=== PATIENT | female | born 1930 | race Caucasian/White ===

== ENCOUNTER 2017-06-12 13:20 | Observation (INO) ==
[2017-06-12 14:30] LABS: Apearance,Urine Slightly Hazy (Clear); Bacteria,Urine Many /HPF (Few); Bilirubin,Urine Negative (Negative); Blood, Urine Moderate mg/dL (Negative); Glucose,Urine (UA) Negative (Negative); Hyaline Casts,Urine 15 /LPF (0-3); Ketones,Urine Negative (Negative); Mucus,Urine Occasional /LPF (Occasional); Nitrite,Urine Positive (Negative); Protein,Urine Negative; Squamous Epithelial Cell,Urine Occasional /HPF (0-10); Urine Color Yellow (Yellow); Urine Specific Gravity 1.012 (1.001-1.035); WBC,Urine 6 /HPF (0-6)
[2017-06-12 14:34] LABS: Barbiturates Screen,Urine Negative (Negative); Benzodiazepines Screen,Urine Negative (Negative); Cannabinoid Screen,Urine Negative (Negative); Opiate Screen,Urine Negative (Negative); Phencyclidine Screen,Urine Negative (Negative)
[2017-06-12 14:44] LABS: Basophils % 0.4 % (0.0-0.8); Eosinophils # 0.1 10*3/uL (0.0-0.87); Eosinophils % 1.4 % (0.00-10.9); Hematocrit 39.5 VOL% (35.7-47.0); Hemoglobin 13.2 GM/DL (12.0-16.0); Immature Granulocytes % 0.4 %; Immature Granulocytes Absolute 0.02 #; Lymphocytes # 0.8 10*3/uL (1.4-4.0); Lymphocytes % 16.4 % (21.3-54.2); Mean Corpuscular HGB Conc 33.4 GM/DL (32-36); Mean Corpuscular Hemoglobin 29 PG (27-34); Mean Corpuscular Volume 86.6 FL (87-102); Mean Platelet Volume 10.3 FL (9.6-12.0); Monocytes # 0.8 10*3/uL (0.11-0.8); Monocytes % 14.6 % (1.7-12.7); Neutrophils # 3.4 10*3/uL (1.4-7.4); Neutrophils % 66.8 % (38.7-73.9); Platelet Count 130 T/CUMM (130-400); Red Blood Count 4.56 MC/CUMM (3.8-5.5); Red Cell Distribution Width 13.6 % (9.3-17.3); White Blood Count 5.1 T/CUMM (4-12)
[2017-06-12 14:56] LABS: INR 2.4; PT Patient Result 24.8 SECS
[2017-06-12 15:14] LABS: Alanine Aminotransferase 16 U/L (13-56); Albumin 3.4 G/DL (3.4-5.0); Alkaline Phosphatase 95 U/L (45-117); Aspartate Amino Transferase 22 U/L (0-37); Blood Urea Nitrogen 10 MG/DL (7-18); Calcium 8.2 MG/DL (8.5-10.1); Glucose 104 MG/DL (74-106); Magnesium 1.6 MG/DL (1.8-2.4); Osmolality,Calculated 262.5 MOS/KG (273-304); Potassium 4.1 MMOL/L (3.5-5.1); Sodium 132 MMOL/L (136-145); Total Protein 6.7 G/DL (6.4-8.3); Troponin I Only < 0.015 NG/ML (0.00-0.045)
[2017-06-12] MEDS ORDERED: ONDANSETRON 4 MG/2 ML VIAL IV PRN (16:25)
[2017-06-12] MEDS ORDERED: guaiFENesin/DM ER 600-30 MG TABLET PO PRN (16:25)
[2017-06-12] MEDS ORDERED: MORPHINE 2 MG/1 ML SYRINGE IV PRN (16:25)
[2017-06-12] MEDS ORDERED: ACETAMINOPHEN 325 MG TABLET PO PRN (16:25)
[2017-06-12] MEDS ORDERED: diphenhydrAMINE CAP 25 MG CAPSULE PO PRN (16:25)
[2017-06-12] MEDS ORDERED: MAGNESIUM SULF RIDER 2 GM in PREMIX 1 EACH IV PRN (16:43)
[2017-06-12] MEDS ORDERED: MAGNESIUM SULF RIDER 4 GM in PREMIX 1 EACH IV PRN (16:43)
[2017-06-12] MEDS ORDERED: PANTOPRAZOLE 40 MG TABLET PO ONE (18:45)
[2017-06-12] MEDS ORDERED: cefTRIAXone 1,000 MG VIAL ONE (18:45)
[2017-06-12] MEDS: SODIUM CHLORIDE 0.9% 1,000 ML IV SCH (18:47)
[2017-06-12] MEDS: PANTOPRAZOLE 40 MG TABLET PO SCH (18:48)
[2017-06-12] MEDS: cefTRIAXone 1,000 MG in SYRINGE 1 EACH IV SCH (18:48)
[2017-06-12] MEDS: POTASSIUM CHLORIDE 20 MEQ TABLET PO SCH (23:00)
[2017-06-12] MEDS: METOPROLOL TARTRATE 50 MG TABLET PO SCH (23:00)
[2017-06-12] MEDS: OSELTAMIVIR 75 MG CAPSULE PO SCH (23:00)
[2017-06-12] MEDS: WARFARIN 3 MG TABLET PO SCH (23:00)
[2017-06-12] MEDS: DILTIAZEM CD 120 MG CAPSULE PO SCH (23:00)
[2017-06-13] MEDS ORDERED: NALOXONE 0.4 MG/ML VIAL ONE (03:48)
[2017-06-13] MEDS ORDERED: GLUCAGON 1 MG VIAL IM PRN (03:51)
[2017-06-13] MEDS ORDERED: DEXTROSE 50% 25 GM/50 ML VIAL IV PRN (03:51)
[2017-06-13] MEDS ORDERED: NALOXONE 0.4 MG/ML VIAL IV ONE (05:00)
[2017-06-13 05:26] LABS: Basophils % 0.2 % (0.0-0.8); Eosinophils % 0.9 % (0.00-10.9); Hematocrit 40.3 VOL% (35.7-47.0); Hemoglobin 13.7 GM/DL (12.0-16.0); Immature Granulocytes % 0.5 %; Immature Granulocytes Absolute 0.02 #; Lymphocytes # 1.4 10*3/uL (1.4-4.0); Lymphocytes % 32.2 % (21.3-54.2); Mean Corpuscular Hemoglobin 29 PG (27-34); Mean Corpuscular Volume 84.7 FL (87-102); Mean Platelet Volume 10.8 FL (9.6-12.0); Monocytes # 0.5 10*3/uL (0.11-0.8); Monocytes % 10.2 % (1.7-12.7); Neutrophils # 2.5 10*3/uL (1.4-7.4); Platelet Count 135 T/CUMM (130-400); Red Blood Count 4.76 MC/CUMM (3.8-5.5); Red Cell Distribution Width 13.5 % (9.3-17.3); White Blood Count 4.4 T/CUMM (4-12)
[2017-06-13 06:03] LABS: Calcium 8.6 MG/DL (8.5-10.1); Magnesium 1.7 MG/DL (1.8-2.4); Osmolality,Calculated 263.5 MOS/KG (273-304); Potassium 4.1 MMOL/L (3.5-5.1)
[2017-06-13 06:34] LABS: Band Neutrophils 6 % (0-10); Eosinophils 1 % (0-10); Lymphocytes 40 % (20-55); Segmented Neutrophils 47 % (50-85); Total Cells Counted 100
[2017-06-13 06:35] LABS: Platelet Estimate Normal
[2017-06-13 08:34] LABS: Calcium 8.4 MG/DL (8.5-10.1); Osmolality,Calculated 263.5 MOS/KG (273-304); Potassium 4.1 MMOL/L (3.5-5.1)
[2017-06-13] MEDS: DOCUSATE SODIUM 100 MG CAPSULE PO PRN (09:28)
[2017-06-13] MEDS: DILTIAZEM CD 120 MG CAPSULE PO SCH (09:28)
[2017-06-13] MEDS: OSELTAMIVIR 75 MG CAPSULE PO SCH ×2 (09:28→21:24)
[2017-06-13] MEDS: cefTRIAXone 1,000 MG in SYRINGE 1 EACH IV SCH (09:28)
[2017-06-13] MEDS: POTASSIUM CHLORIDE 20 MEQ TABLET PO SCH (09:28)
[2017-06-13] MEDS: PANTOPRAZOLE 40 MG TABLET PO SCH (09:29)
[2017-06-13] MEDS: METOPROLOL TARTRATE 50 MG TABLET PO SCH ×2 (09:29→21:24)
[2017-06-13] MEDS: SODIUM CHLORIDE 0.9% 1,000 ML IV SCH ×4 (11:50→17:57)
[2017-06-13 14:51] LABS: Basophils % 0.5 % (0.0-0.8); Eosinophils % 0.9 % (0.00-10.9); Hematocrit 38.4 VOL% (35.7-47.0); Immature Granulocytes % 0.2 %; Immature Granulocytes Absolute 0.01 #; Lymphocytes # 1.5 10*3/uL (1.4-4.0); Lymphocytes % 35.2 % (21.3-54.2); Mean Corpuscular HGB Conc 33.9 GM/DL (32-36); Mean Corpuscular Hemoglobin 29 PG (27-34); Mean Corpuscular Volume 86.9 FL (87-102); Mean Platelet Volume 10.5 FL (9.6-12.0); Monocytes # 0.6 10*3/uL (0.11-0.8); Monocytes % 13.3 % (1.7-12.7); Neutrophils # 2.2 10*3/uL (1.4-7.4); Neutrophils % 49.9 % (38.7-73.9); Platelet Count 118 T/CUMM (130-400); Red Blood Count 4.42 MC/CUMM (3.8-5.5); Red Cell Distribution Width 13.5 % (9.3-17.3); White Blood Count 4.4 T/CUMM (4-12)
[2017-06-13 15:12] LABS: Band Neutrophils 1 % (0-10); Lymphocytes 36 % (20-55); Platelet Estimate Adequate; Segmented Neutrophils 45 % (50-85); Total Cells Counted 100
[2017-06-13 17:11] LABS: ABG Base Excess -0.1 MMOL/L (-2.5-2.5); ABG HCO3 24.4 MMOL/L (20-26); ABG Oxygen Saturation 98.4 % (95-100); ABG PCO2 35.7 MM HG (35-48); ABG PH 7.431 (7.35-7.45); ABG TCO2 20.7 MMOL/L (23-27)
[2017-06-13 17:35] LABS: Apearance,Urine CLEAR (Clear); Bilirubin,Urine Negative (Negative); Blood, Urine Small mg/dL (Negative); Glucose,Urine (UA) Negative (Negative); Ketones,Urine Negative (Negative); Nitrite,Urine Negative (Negative); Protein,Urine Negative; RBC,Urine 3 /HPF (0-4); Squamous Epithelial Cell,Urine Occasional /HPF (0-10); Urine Color Yellow (Yellow); Urine Specific Gravity 1.008 (1.001-1.035); WBC,Urine 1 /HPF (0-6)
[2017-06-13] MEDS: WARFARIN 3 MG TABLET PO SCH (17:46)
[2017-06-14 07:29] LABS: Basophils % 0.2 % (0.0-0.8); Eosinophils # 0.1 10*3/uL (0.0-0.87); Eosinophils % 1.8 % (0.00-10.9); Hematocrit 38.4 VOL% (35.7-47.0); Hemoglobin 12.8 GM/DL (12.0-16.0); Immature Granulocytes % 0.4 %; Immature Granulocytes Absolute 0.02 #; Lymphocytes # 1.9 10*3/uL (1.4-4.0); Lymphocytes % 43.4 % (21.3-54.2); Mean Corpuscular HGB Conc 33.3 GM/DL (32-36); Mean Corpuscular Hemoglobin 29 PG (27-34); Mean Corpuscular Volume 86.1 FL (87-102); Mean Platelet Volume 10.6 FL (9.6-12.0); Monocytes # 0.6 10*3/uL (0.11-0.8); Monocytes % 12.5 % (1.7-12.7); Neutrophils # 1.9 10*3/uL (1.4-7.4); Neutrophils % 41.7 % (38.7-73.9); Platelet Count 122 T/CUMM (130-400); Red Blood Count 4.46 MC/CUMM (3.8-5.5); Red Cell Distribution Width 13.6 % (9.3-17.3); White Blood Count 4.5 T/CUMM (4-12)
[2017-06-14 08:08] LABS: Calcium 8.5 MG/DL (8.5-10.1); Osmolality,Calculated 271.8 MOS/KG (273-304)
[2017-06-14 08:14] LABS: Band Neutrophils 2 % (0-10); Eosinophils 2 % (0-10); Hypochromasia 1+; Lymphocytes 40 % (20-55); Microcytosis Slight; Segmented Neutrophils 44 % (50-85); Total Cells Counted 100
[2017-06-14 08:15] LABS: Platelet Estimate Adequate
[2017-06-14] MEDS: cefTRIAXone 1,000 MG in SYRINGE 1 EACH IV SCH (09:05)
[2017-06-14] MEDS: DOCUSATE SODIUM 100 MG CAPSULE PO PRN (09:06)
[2017-06-14] MEDS: METOPROLOL TARTRATE 50 MG TABLET PO SCH ×2 (09:06→21:29)
[2017-06-14] MEDS: PANTOPRAZOLE 40 MG TABLET PO SCH (09:06)
[2017-06-14] MEDS: POTASSIUM CHLORIDE 20 MEQ TABLET PO SCH (09:06)
[2017-06-14] MEDS: OSELTAMIVIR 75 MG CAPSULE PO SCH ×2 (09:06→21:29)
[2017-06-14] MEDS: DILTIAZEM CD 120 MG CAPSULE PO SCH (09:06)
[2017-06-14] MEDS: SODIUM CHLORIDE 0.9% 1,000 ML IV SCH ×3 (10:16→16:08)
[2017-06-14] MEDS ORDERED: MAGNESIUM SULF RIDER 2 GM in PREMIX 1 EACH IV ONE (11:00)
[2017-06-14] MEDS: WARFARIN 3 MG TABLET PO SCH (17:00)
[2017-06-15] MEDS: SODIUM CHLORIDE 0.9% 1,000 ML IV SCH ×2 (09:37→10:57)
[2017-06-15] MEDS: DILTIAZEM CD 120 MG CAPSULE PO SCH (09:41)
[2017-06-15] MEDS: METOPROLOL TARTRATE 50 MG TABLET PO SCH (09:41)
[2017-06-15] MEDS: PANTOPRAZOLE 40 MG TABLET PO SCH (09:41)
[2017-06-15] MEDS: OSELTAMIVIR 75 MG CAPSULE PO SCH (09:41)
[2017-06-15] MEDS: cefTRIAXone 1,000 MG in SYRINGE 1 EACH IV SCH (09:41)
[2017-06-15] MEDS: POTASSIUM CHLORIDE 20 MEQ TABLET PO SCH (09:41)
[2017-06-15 09:49] LABS: INR 3.5
[2017-06-15 09:51] LABS: PT Patient Result 35.4 SECS
[2017-06-15 11:49] VITALS: BP 150/70
== END 2017-06-15 12:40 | disposition home health service (06) ==
LOC: EDUNIT# → EDBD → N.ED 13:20 → N.EDINP 13:20 → N.2E 19:31
PROVIDERS: ADMIT Internal Medicine; ATTEND Internal Medicine

== ENCOUNTER 2017-09-15 11:25 | Inpatient (IN) ==
[2017-09-15 12:07] LABS: Basophils % 0.5 % (0.0-0.8); Eosinophils # 0.1 10*3/uL (0.0-0.87); Eosinophils % 1.2 % (0.00-10.9); Hematocrit 38.3 VOL% (35.7-47.0); Hemoglobin 12.7 GM/DL (12.0-16.0); Immature Granulocytes % 0.5 %; Immature Granulocytes Absolute 0.03 #; Lymphocytes # 1.2 10*3/uL (1.4-4.0); Lymphocytes % 18.5 % (21.3-54.2); Mean Corpuscular HGB Conc 33.2 GM/DL (32-36); Mean Corpuscular Hemoglobin 29 PG (27-34); Mean Corpuscular Volume 86.3 FL (87-102); Mean Platelet Volume 10.1 FL (9.6-12.0); Monocytes # 0.4 10*3/uL (0.11-0.8); Monocytes % 6.1 % (1.7-12.7); Neutrophils # 4.8 10*3/uL (1.4-7.4); Neutrophils % 73.2 % (38.7-73.9); Platelet Count 175 T/CUMM (130-400); Red Blood Count 4.44 MC/CUMM (3.8-5.5); Red Cell Distribution Width 14.6 % (9.3-17.3); White Blood Count 6.6 T/CUMM (4-12)
[2017-09-15 12:28] LABS: Albumin 3.7 G/DL (3.4-5.0); Bilirubin,Total 0.5 MG/DL (0.2-1.0); Calcium 9.2 MG/DL (8.5-10.1); INR 3.2; Osmolality,Calculated 262.7 MOS/KG (273-304); Partial Thromboplastin Time 32.6 SECS (0-40); Potassium 4.1 MMOL/L (3.5-5.1); Total Protein 7.6 G/DL (6.4-8.3)
[2017-09-15 12:30] LABS: PT Patient Result 32.8 SECS
[2017-09-15] MEDS ORDERED: ONDANSETRON 4 MG/2 ML VIAL ONE ×2 (12:49→13:43)
[2017-09-15] MEDS ORDERED: ONDANSETRON 4 MG/2 ML VIAL IV STA ×3 (12:58→14:00)
[2017-09-15] MEDS ORDERED: fentaNYL 100 MCG/2 ML VIAL ONE (13:47)
[2017-09-15] MEDS ORDERED: fentaNYL 100 MCG/2 ML VIAL IV STA ×2 (13:59→14:01)
[2017-09-15] MEDS ORDERED: oxyCODONE IR 5 MG TABLET PO PRN (14:35)
[2017-09-15] MEDS ORDERED: PHYTONADIONE 10 MG/1 ML AMP IV STA (14:35)
[2017-09-15] MEDS ORDERED: MORPHINE 2 MG/1 ML SYRINGE IV PRN ×2 (14:35→16:16)
[2017-09-15 14:41] LABS: Apearance,Urine Slightly Hazy (Clear); Bacteria,Urine Occasional /HPF (Few); Bilirubin,Urine Negative (Negative); Blood, Urine Small mg/dL (Negative); Glucose,Urine (UA) Negative (Negative); Ketones,Urine Negative (Negative); Mucus,Urine Occasional /LPF (Occasional); Nitrite,Urine Negative (Negative); Protein,Urine Negative; RBC,Urine 4 /HPF (0-4); Squamous Epithelial Cell,Urine Occasional /HPF (0-10); Urine Color Yellow (Yellow); Urine Urobilinogen < 2.0 EU/DL (0.2-1.0); WBC,Urine 5 /HPF (0-6)
[2017-09-15] MEDS ORDERED: SODIUM CHLORIDE 0.9% 1,000 ML IV PRN (16:12)
[2017-09-15] MEDS: SODIUM CHLORIDE 0.9% 1,000 ML IV SCH (17:11)
[2017-09-15] MEDS: METOPROLOL TARTRATE 50 MG TABLET PO SCH (20:38)
[2017-09-15 21:13] LABS: INR 1.5; PT Patient Result 15.3 SECS
[2017-09-16 05:06] LABS: Basophils % 0.2 % (0.0-0.8); Eosinophils # 0.1 10*3/uL (0.0-0.87); Eosinophils % 0.6 % (0.00-10.9); Hematocrit 29.6 VOL% (35.7-47.0); Hemoglobin 9.7 GM/DL (12.0-16.0); Immature Granulocytes % 0.4 %; Immature Granulocytes Absolute 0.04 #; Lymphocytes # 1.3 10*3/uL (1.4-4.0); Lymphocytes % 14.5 % (21.3-54.2); Mean Corpuscular HGB Conc 32.8 GM/DL (32-36); Mean Corpuscular Hemoglobin 29 PG (27-34); Mean Corpuscular Volume 87.6 FL (87-102); Mean Platelet Volume 12.1 FL (9.6-12.0); Monocytes % 10.2 % (1.7-12.7); Neutrophils # 6.9 10*3/uL (1.4-7.4); Neutrophils % 74.1 % (38.7-73.9); Platelet Count 101 T/CUMM (130-400); Red Blood Count 3.38 MC/CUMM (3.8-5.5); Red Cell Distribution Width 14.3 % (9.3-17.3); White Blood Count 9.3 T/CUMM (4-12)
[2017-09-16 05:12] LABS: INR 1.2; PT Patient Result 12.6 SECS
[2017-09-16 05:30] LABS: Hypochromasia 1+; Microcytosis 1+; Ovalocytes Slight; Platelet Estimate Decreased
[2017-09-16 05:36] LABS: Calcium 8.4 MG/DL (8.5-10.1); Osmolality,Calculated 267.1 MOS/KG (273-304); Potassium 4.1 MMOL/L (3.5-5.1)
[2017-09-16] MEDS: METOPROLOL TARTRATE 50 MG TABLET PO SCH ×3 (06:29→20:44)
[2017-09-16] MEDS ORDERED: LACTULOSE 20 GM/30 ML UDCUP PO PRN (07:20)
[2017-09-16] MEDS ORDERED: BISACODYL 10 MG SUPP RECTAL PRN (07:20)
[2017-09-16] MEDS ORDERED: PROMETHAZINE 25 MG/1 ML VIAL IM PRN (07:20)
[2017-09-16] MEDS ORDERED: MAGNESIUM HYDROXIDE SUSP 30 ML UDCUP PO PRN (07:20)
[2017-09-16] MEDS ORDERED: ceFAZolin 1,000 MG VIAL ONE (07:35)
[2017-09-16] MEDS: PANTOPRAZOLE 40 MG TABLET PO SCH (08:00)
[2017-09-16] MEDS: POTASSIUM CHLORIDE 20 MEQ TABLET PO SCH (08:00)
[2017-09-16] MEDS: SERTRALINE 50 MG TABLET PO SCH (08:00)
[2017-09-16] MEDS ORDERED: SEVOFLURANE 1 UNIT/15 MINUTE INH ONE (08:40)
[2017-09-16] MEDS ORDERED: fentaNYL 100 MCG/2 ML VIAL ONE (08:40)
[2017-09-16] MEDS ORDERED: ETOMIDATE 40 MG/20 ML VIAL IV ONE (08:40)
[2017-09-16] MEDS ORDERED: ONDANSETRON 4 MG/2 ML VIAL ONE ×2 (08:48→09:07)
[2017-09-16] MEDS ORDERED: ONDANSETRON 4 MG/2 ML VIAL IV PRN (08:50)
[2017-09-16] MEDS: SODIUM CHLORIDE 0.9% 1,000 ML IV SCH ×2 (10:30→15:05)
[2017-09-16] MEDS: ACETAMINOPHEN INJ 1,000 MG in PREMIX 1 EACH IV SCH (11:09)
[2017-09-16] MEDS: DILTIAZEM CD 120 MG CAPSULE PO SCH (12:04)
[2017-09-16] MEDS ORDERED: MORPHINE 4 MG/1 ML VIAL IV PRN ×2 (12:30→13:00)
[2017-09-16] MEDS: ONDANSETRON 4 MG/2 ML VIAL IV PRN (14:15)
[2017-09-16] MEDS: ACETAMINOPHEN 500 MG TABLET PO SCH ×2 (15:45→20:44)
[2017-09-16] MEDS: ceFAZolin 1,000 MG in SYRINGE 1 EACH IV SCH ×2 (15:45→23:07)
[2017-09-16] MEDS: WARFARIN 3 MG TABLET PO SCH (17:20)
[2017-09-17] MEDS ORDERED: SODIUM CHLORIDE 0.9% 500 ML IV ONE ×2 (00:30→01:14)
[2017-09-17 05:01] LABS: INR 1.2; PT Patient Result 12.1 SECS
[2017-09-17 05:14] LABS: Hematocrit 22.1 VOL% (35.7-47.0); Hemoglobin 7.5 GM/DL (12.0-16.0); Mean Corpuscular HGB Conc 33.9 GM/DL (32-36); Mean Corpuscular Hemoglobin 29 PG (27-34); White Blood Count 10.4 T/CUMM (4-12)
[2017-09-17 05:15] LABS: Basophils % 0.2 % (0.0-0.8); Eosinophils % 0.3 % (0.00-10.9); Immature Granulocytes % 1.3 %; Immature Granulocytes Absolute 0.14 #; Lymphocytes # 1.2 10*3/uL (1.4-4.0); Lymphocytes % 11.3 % (21.3-54.2); Mean Platelet Volume 10.7 FL (9.6-12.0); Monocytes # 1.2 10*3/uL (0.11-0.8); Monocytes % 11.7 % (1.7-12.7); Neutrophils # 7.8 10*3/uL (1.4-7.4); Neutrophils % 75.2 % (38.7-73.9); Platelet Count 116 T/CUMM (130-400); Red Cell Distribution Width 14.5 % (9.3-17.3)
[2017-09-17 05:33] LABS: Calcium 7.5 MG/DL (8.5-10.1); Osmolality,Calculated 272.1 MOS/KG (273-304)
[2017-09-17 06:51] LABS: Hypochromasia Slight; Polychromasia Slight
[2017-09-17] MEDS: SODIUM CHLORIDE 0.9% 1,000 ML IV SCH ×3 (06:57→22:43)
[2017-09-17] MEDS: ONDANSETRON 4 MG/2 ML VIAL IV PRN ×2 (10:41→16:36)
[2017-09-17] MEDS: DILTIAZEM CD 120 MG CAPSULE PO SCH ×3 (10:42→16:15)
[2017-09-17] MEDS: PANTOPRAZOLE 40 MG TABLET PO SCH ×2 (10:43→11:15)
[2017-09-17] MEDS: METOPROLOL TARTRATE 50 MG TABLET PO SCH ×2 (10:43→20:02)
[2017-09-17] MEDS: POTASSIUM CHLORIDE 20 MEQ TABLET PO SCH ×2 (10:43→11:15)
[2017-09-17] MEDS: ACETAMINOPHEN 500 MG TABLET PO SCH ×4 (10:44→20:11)
[2017-09-17] MEDS: SERTRALINE 50 MG TABLET PO SCH ×2 (10:45→11:15)
[2017-09-17] MEDS: ceFAZolin 1,000 MG in SYRINGE 1 EACH IV SCH (12:30)
[2017-09-17] MEDS ORDERED: ceFAZolin 1,000 MG in SYRINGE 1 EACH IV SCH ×2 (13:00→16:30)
[2017-09-17] MEDS: WARFARIN 3 MG TABLET PO SCH (19:24)
[2017-09-18 05:27] LABS: Basophils % 0.1 % (0.0-0.8); Eosinophils # 0.1 10*3/uL (0.0-0.87); Eosinophils % 1.2 % (0.00-10.9); Hemoglobin 7.3 GM/DL (12.0-16.0); Immature Granulocytes % 0.4 %; Immature Granulocytes Absolute 0.03 #; Lymphocytes # 1.2 10*3/uL (1.4-4.0); Lymphocytes % 14.3 % (21.3-54.2); Mean Corpuscular HGB Conc 33.2 GM/DL (32-36); Mean Corpuscular Hemoglobin 29 PG (27-34); Mean Corpuscular Volume 85.9 FL (87-102); Mean Platelet Volume 10.4 FL (9.6-12.0); Monocytes # 0.8 10*3/uL (0.11-0.8); Monocytes % 9.8 % (1.7-12.7); Neutrophils % 74.2 % (38.7-73.9); Platelet Count 112 T/CUMM (130-400); Red Blood Count 2.56 MC/CUMM (3.8-5.5); Red Cell Distribution Width 14.8 % (9.3-17.3)
[2017-09-18 05:53] LABS: INR 1.3; PT Patient Result 13.5 SECS
[2017-09-18 05:57] LABS: Calcium 7.7 MG/DL (8.5-10.1); Osmolality,Calculated 273.8 MOS/KG (273-304); Potassium 3.5 MMOL/L (3.5-5.1)
[2017-09-18] MEDS: DILTIAZEM CD 120 MG CAPSULE PO SCH (08:42)
[2017-09-18] MEDS: ACETAMINOPHEN 500 MG TABLET PO SCH ×3 (08:43→21:24)
[2017-09-18] MEDS: SERTRALINE 50 MG TABLET PO SCH (08:43)
[2017-09-18] MEDS: POTASSIUM CHLORIDE 20 MEQ TABLET PO SCH (08:43)
[2017-09-18] MEDS: PANTOPRAZOLE 40 MG TABLET PO SCH (08:43)
[2017-09-18] MEDS: METOPROLOL TARTRATE 50 MG TABLET PO SCH ×2 (08:52→21:24)
[2017-09-18] MEDS: SODIUM CHLORIDE 0.9% 1,000 ML IV SCH ×2 (09:50→21:25)
[2017-09-18] MEDS ORDERED: SODIUM CHLORIDE 0.9% 1,000 ML IV PRN (12:35)
[2017-09-18] MEDS: WARFARIN 3 MG TABLET PO SCH (18:04)
[2017-09-19] MEDS: ONDANSETRON 4 MG/2 ML VIAL IV PRN (05:11)
[2017-09-19 05:35] LABS: Basophils % 0.1 % (0.0-0.8); Eosinophils # 0.1 10*3/uL (0.0-0.87); Eosinophils % 1.4 % (0.00-10.9); Hematocrit 31.2 VOL% (35.7-47.0); Hemoglobin 10.4 GM/DL (12.0-16.0); Immature Granulocytes % 0.6 %; Immature Granulocytes Absolute 0.05 #; Lymphocytes # 1.1 10*3/uL (1.4-4.0); Lymphocytes % 14.2 % (21.3-54.2); Mean Corpuscular HGB Conc 33.3 GM/DL (32-36); Mean Corpuscular Hemoglobin 29 PG (27-34); Mean Corpuscular Volume 87.2 FL (87-102); Mean Platelet Volume 10.4 FL (9.6-12.0); Monocytes # 0.6 10*3/uL (0.11-0.8); Monocytes % 7.9 % (1.7-12.7); Neutrophils # 6.1 10*3/uL (1.4-7.4); Neutrophils % 75.8 % (38.7-73.9); Platelet Count 129 T/CUMM (130-400); Red Blood Count 3.58 MC/CUMM (3.8-5.5); Red Cell Distribution Width 14.4 % (9.3-17.3)
[2017-09-19 05:55] LABS: Osmolality,Calculated 271.8 MOS/KG (273-304); Potassium 3.9 MMOL/L (3.5-5.1)
[2017-09-19] MEDS: SODIUM CHLORIDE 0.9% 1,000 ML IV SCH (06:30)
[2017-09-19 07:49] LABS: INR 1.8; PT Patient Result 18.5 SECS
[2017-09-19] MEDS: POTASSIUM CHLORIDE 20 MEQ TABLET PO SCH (09:12)
[2017-09-19] MEDS: DILTIAZEM CD 120 MG CAPSULE PO SCH (09:12)
[2017-09-19] MEDS: ACETAMINOPHEN 500 MG TABLET PO SCH (09:13)
[2017-09-19] MEDS: SERTRALINE 50 MG TABLET PO SCH (09:13)
[2017-09-19] MEDS: METOPROLOL TARTRATE 50 MG TABLET PO SCH (09:13)
[2017-09-19] MEDS: PANTOPRAZOLE 40 MG TABLET PO SCH (09:13)
[2017-09-19 11:02] VITALS: BP 160/79
== END 2017-09-19 14:12 | DRG 481 ==
LOC: EDUNIT# → EDBD → N.ED 11:25 → N.EDINP 12:40 → N.3E 15:03
PROVIDERS: ADMIT Internal Medicine; ATTEND Internal Medicine

== ENCOUNTER 2021-04-15 14:42 | Inpatient (IN) ==
[2021-04-15] MEDS ORDERED: SODIUM CHLORIDE 0.9% 500 ML IV STA (15:31)
[2021-04-15 16:26] LABS: Bacteria,Urine Occasional /HPF (Few); Bilirubin,Urine Negative (Negative); Blood, Urine Small mg/dL (Negative); Glucose,Urine (UA) Negative (Negative); Ketones,Urine Negative (Negative); Mucus,Urine Occasional /LPF (Occasional); Nitrite,Urine Negative (Negative); Protein,Urine Negative; RBC,Urine 6 /HPF (0-4); Squamous Epithelial Cell,Urine Few /HPF (0-10); Urine Appearance CLOUDY (Clear); Urine Color Amber (Yellow); Urine Specific Gravity 1.019 (1.001-1.035)
[2021-04-15 16:42] LABS: Basophils # 0.1 10*3/uL (0.0-0.2); Basophils % 0.4 % (0.0-0.8); Eosinophils # 0.3 10*3/uL (0.0-0.87); Eosinophils % 2.3 % (0.00-10.9); Hematocrit 45.2 VOL% (35.7-47.0); Hemoglobin 12.6 GM/DL (12.0-16.0); Immature Granulocytes % 0.8 %; Lymphocytes # 2.1 10*3/uL (1.4-4.0); Lymphocytes % 17.4 % (21.3-54.2); Mean Corpuscular HGB Conc 27.9 GM/DL (32-36); Mean Corpuscular Volume 96.6 FL (87-102); Mean Platelet Volume 10.5 FL (9.6-12.0); NRBC # 0.03 10*3/uL; Neutrophils % 73.1 % (38.7-73.9); Platelet Count 396 T/CUMM (130-400); Red Blood Count 4.68 MC/CUMM (3.8-5.5); Red Cell Distribution Width 17.5 % (9.3-17.3); White Blood Count 12.1 T/CUMM (4-12)
[2021-04-15 16:52] LABS: INR 3.4; PT Patient Result 34.6 SECS (10.5-12.0)
[2021-04-15] MEDS ORDERED: SODIUM CHLORIDE 0.9% 1,650 ML IV ONE (17:12)
[2021-04-15 17:17] LABS: Alanine Aminotransferase 17 U/L (13-56); Albumin 2.4 G/DL (3.4-5.0); Alkaline Phosphatase 139 U/L (45-117); Aspartate Amino Transferase 35 U/L (0-37); Blood Urea Nitrogen 83 MG/DL (7-18); Calcium 9.1 MG/DL (8.5-10.1); Carbon Dioxide 24 MMOL/L (21-32); Estimated Glom Filtration Rate 12 ML/MIN; Glucose 95 MG/DL (74-106); Total Protein 7.7 G/DL (6.4-8.2)
[2021-04-15 17:28] LABS: Osmolality,Calculated 338.7 MOS/KG (273-304)
[2021-04-15 17:30] LABS: Sodium 159 MMOL/L (136-145)
[2021-04-15] MEDS ORDERED: ALBUTEROL 2.5 MG/3 ML NEB RESP TX PRN (17:45)
[2021-04-15] MEDS ORDERED: ONDANSETRON 4 MG/2 ML VIAL IV PRN (17:45)
[2021-04-15] MEDS: LACTATED RINGERS 1,000 ML IV SCH (18:24)
[2021-04-15] MEDS: PIPERACILLIN/TAZOBACTAM 3,375 MG in SODIUM CHLORIDE 0.9% 100 ML IV SCH (18:25)
[2021-04-15] MEDS ORDERED: NOREPINEPHRINE 4 MG/4 ML VIAL IV ONE (18:57)
[2021-04-15] MEDS ORDERED: NOREPINEPHRINE 8 MG in SODIUM CHLORIDE 0.9% 242 ML IV PRN (19:01)
[2021-04-16] MEDS: PIPERACILLIN/TAZOBACTAM 3,375 MG in SODIUM CHLORIDE 0.9% 100 ML IV SCH ×3 (02:21→17:26)
[2021-04-16] MEDS: LACTATED RINGERS 1,000 ML IV SCH ×2 (02:49→09:55)
[2021-04-16 05:34] LABS: Basophils % 0.4 % (0.0-0.8); Eosinophils # 0.2 10*3/uL (0.0-0.87); Eosinophils % 2.2 % (0.00-10.9); Hematocrit 39.9 VOL% (35.7-47.0); Immature Granulocytes % 0.9 %; Lymphocytes # 1.8 10*3/uL (1.4-4.0); Lymphocytes % 16.6 % (21.3-54.2); Mean Corpuscular HGB Conc 27.3 GM/DL (32-36); Mean Corpuscular Volume 98.8 FL (87-102); Mean Platelet Volume 10.5 FL (9.6-12.0); Monocytes % 4.8 % (1.7-12.7); NRBC # 0.02 10*3/uL; Neutrophils % 75.1 % (38.7-73.9); Platelet Count 342 T/CUMM (130-400); Red Blood Count 4.04 MC/CUMM (3.8-5.5); Red Cell Distribution Width 17.5 % (9.3-17.3); White Blood Count 10.6 T/CUMM (4-12)
[2021-04-16 05:39] LABS: Hemoglobin 10.9 GM/DL (12.0-16.0)
[2021-04-16 05:44] LABS: INR 3.1; PT Patient Result 32.4 SECS (10.5-12.0)
[2021-04-16 05:50] LABS: Albumin 1.9 G/DL (3.4-5.0); Bilirubin,Total 0.5 MG/DL (0.20-1.00); Calcium 8.6 MG/DL (8.5-10.1); Osmolality,Calculated 339.5 MOS/KG (273-304); Potassium 4.6 MMOL/L (3.5-5.1); Total Protein 6.8 G/DL (6.4-8.2)
[2021-04-16 05:59] LABS: Platelet Estimate Normal
[2021-04-16 06:00] LABS: Polychromasia Few
[2021-04-16] MEDS: DEXTROSE 5% 1,000 ML IV SCH ×2 (06:30→16:17)
[2021-04-16] MEDS ORDERED: LACTATED RINGERS 1,000 ML IV ONE (08:42)
[2021-04-16] MEDS: SERTRALINE 50 MG TABLET PO SCH (08:58)
[2021-04-16] MEDS: HYDROCORTISONE 100 MG VIAL IV SCH (13:11)
[2021-04-17] MEDS: HYDROCORTISONE 100 MG VIAL IV SCH (00:36)
[2021-04-17] MEDS: PIPERACILLIN/TAZOBACTAM 3,375 MG in SODIUM CHLORIDE 0.9% 100 ML IV SCH ×3 (02:12→16:55)
[2021-04-17 05:50] LABS: Basophils % 0.1 % (0.0-0.8); Eosinophils % 0.1 % (0.00-10.9); Hematocrit 32.5 VOL% (35.7-47.0); Hemoglobin 9.6 GM/DL (12.0-16.0); Immature Granulocytes % 0.7 %; Immature Granulocytes Absolute 0.06 #; Lymphocytes # 0.7 10*3/uL (1.4-4.0); Lymphocytes % 7.9 % (21.3-54.2); Mean Corpuscular HGB Conc 29.5 GM/DL (32-36); Mean Corpuscular Volume 95.3 FL (87-102); Mean Platelet Volume 10.4 FL (9.6-12.0); Monocytes % 1.2 % (1.7-12.7); NRBC # 0.02 10*3/uL; Platelet Count 262 T/CUMM (130-400); Red Blood Count 3.41 MC/CUMM (3.8-5.5); Red Cell Distribution Width 17.1 % (9.3-17.3); White Blood Count 8.8 T/CUMM (4-12)
[2021-04-17 05:52] LABS: Calcium 8.1 MG/DL (8.5-10.1); Osmolality,Calculated 321.6 MOS/KG (273-304); Potassium 3.3 MMOL/L (3.5-5.1)
[2021-04-17 06:04] LABS: Hypochromasia 1+; Microcytosis 1+; Ovalocytes Slight; Platelet Estimate Normal
[2021-04-17] MEDS: POTASSIUM CHLORIDE 20 MEQ TABLET PO ONE ×2 (10:09→10:58)
[2021-04-17] MEDS: DEXTROSE 5% 1,000 ML IV SCH (10:09)
[2021-04-17] MEDS: SERTRALINE 50 MG TABLET PO SCH ×2 (10:09→10:58)
[2021-04-17] MEDS: FLUDROCORTISONE 0.1 MG TABLET PO SCH (10:56)
[2021-04-17] MEDS ORDERED: HYDROCORTISONE 100 MG VIAL IV SCH (12:00)
[2021-04-18] MEDS: PIPERACILLIN/TAZOBACTAM 3,375 MG in SODIUM CHLORIDE 0.9% 100 ML IV SCH ×3 (01:13→18:02)
[2021-04-18 04:26] LABS: Basophils % 0.1 % (0.0-0.8); Eosinophils # 0.2 10*3/uL (0.0-0.87); Eosinophils % 1.9 % (0.00-10.9); Hematocrit 32.4 VOL% (35.7-47.0); Hemoglobin 9.6 GM/DL (12.0-16.0); Immature Granulocytes % 0.7 %; Immature Granulocytes Absolute 0.06 #; Lymphocytes # 1.6 10*3/uL (1.4-4.0); Lymphocytes % 18.8 % (21.3-54.2); Mean Corpuscular HGB Conc 29.6 GM/DL (32-36); Mean Corpuscular Volume 93.4 FL (87-102); Mean Platelet Volume 10.5 FL (9.6-12.0); Monocytes % 5.2 % (1.7-12.7); NRBC # 0.03 10*3/uL; Neutrophils % 73.3 % (38.7-73.9); Platelet Count 251 T/CUMM (130-400); Red Blood Count 3.47 MC/CUMM (3.8-5.5); Red Cell Distribution Width 16.4 % (9.3-17.3); White Blood Count 8.6 T/CUMM (4-12)
[2021-04-18 04:41] LABS: Calcium 8.2 MG/DL (8.5-10.1); Osmolality,Calculated 307.9 MOS/KG (273-304); Potassium 2.9 MMOL/L (3.5-5.1)
[2021-04-18] MEDS ORDERED: POTASSIUM CHLORIDE 20 MEQ TABLET PO ONE (07:45)
[2021-04-18] MEDS: POTASSIUM CHLORIDE RIDER 10 MEQ/100 ML PREMIX IV PRN ×4 (09:01→16:47)
[2021-04-18] MEDS: FLUDROCORTISONE 0.1 MG TABLET PO SCH (09:57)
[2021-04-18] MEDS: SERTRALINE 50 MG TABLET PO SCH (09:57)
[2021-04-18 13:23] LABS: INR 1.8
[2021-04-18 13:28] LABS: PT Patient Result 19.9 SECS (10.5-12.0)
[2021-04-19] MEDS: DEXTROSE 5% 1,000 ML IV SCH ×3 (00:18→01:35)
[2021-04-19] MEDS: PIPERACILLIN/TAZOBACTAM 3,375 MG in SODIUM CHLORIDE 0.9% 100 ML IV SCH ×2 (00:19→08:54)
[2021-04-19 06:41] LABS: Basophils % 0.3 % (0.0-0.8); Eosinophils # 0.3 10*3/uL (0.0-0.87); Hematocrit 29.2 VOL% (35.7-47.0); Hemoglobin 8.6 GM/DL (12.0-16.0); Immature Granulocytes % 0.7 %; Immature Granulocytes Absolute 0.05 #; Lymphocytes # 1.1 10*3/uL (1.4-4.0); Lymphocytes % 14.7 % (21.3-54.2); Mean Corpuscular HGB Conc 29.5 GM/DL (32-36); Mean Corpuscular Volume 91.5 FL (87-102); Mean Platelet Volume 10.4 FL (9.6-12.0); Monocytes % 5.2 % (1.7-12.7); Neutrophils % 75.1 % (38.7-73.9); Platelet Count 217 T/CUMM (130-400); Red Blood Count 3.19 MC/CUMM (3.8-5.5); Red Cell Distribution Width 16.5 % (9.3-17.3); White Blood Count 7.5 T/CUMM (4-12)
[2021-04-19 06:51] LABS: INR 1.4; PT Patient Result 15.6 SECS (10.5-12.0)
[2021-04-19 06:56] LABS: Calcium 7.9 MG/DL (8.5-10.1); Osmolality,Calculated 304.7 MOS/KG (273-304); Potassium 3.2 MMOL/L (3.5-5.1)
[2021-04-19] MEDS: SERTRALINE 50 MG TABLET PO SCH (08:54)
[2021-04-19] MEDS: FLUDROCORTISONE 0.1 MG TABLET PO SCH (08:54)
[2021-04-19] MEDS ORDERED: LEVOFLOXACIN INJ 500 MG/100 ML PREMIX IV SCH (10:00)
[2021-04-19] MEDS: carvediloL 3.125 MG TABLET PO SCH ×2 (11:00→19:47)
[2021-04-19] MEDS: POTASSIUM CHLORIDE RIDER 10 MEQ/100 ML PREMIX IV PRN (15:45)
[2021-04-19] MEDS ORDERED: SODIUM CHLORIDE 0.9% 1,000 ML IV PRN (17:27)
[2021-04-19] MEDS ORDERED: SODIUM CHLORIDE 0.9% 1,000 ML IV ONE (17:40)
[2021-04-19 17:54] LABS: Basophils % 0.2 % (0.0-0.8); Eosinophils # 0.2 10*3/uL (0.0-0.87); Eosinophils % 2.3 % (0.00-10.9); Hematocrit 25.9 VOL% (35.7-47.0); Hemoglobin 7.6 GM/DL (12.0-16.0); Immature Granulocytes % 1.3 %; Immature Granulocytes Absolute 0.12 #; Lymphocytes # 1.8 10*3/uL (1.4-4.0); Lymphocytes % 18.9 % (21.3-54.2); Mean Corpuscular HGB Conc 29.3 GM/DL (32-36); Mean Corpuscular Volume 92.8 FL (87-102); Mean Platelet Volume 10.3 FL (9.6-12.0); Monocytes % 4.3 % (1.7-12.7); NRBC # 0.02 10*3/uL; Platelet Count 224 T/CUMM (130-400); Red Blood Count 2.79 MC/CUMM (3.8-5.5); Red Cell Distribution Width 16.6 % (9.3-17.3); White Blood Count 9.3 T/CUMM (4-12)
[2021-04-19 18:19] LABS: Alanine Aminotransferase 11 U/L (13-56); Albumin 1.6 G/DL (3.4-5.0); Alkaline Phosphatase 76 U/L (45-117); Aspartate Amino Transferase 23 U/L (0-37); Blood Urea Nitrogen 21 MG/DL (7-18); Calcium 7.6 MG/DL (8.5-10.1); Carbon Dioxide 24 MMOL/L (21-32); Estimated Glom Filtration Rate 43 ML/MIN; Glucose 211 MG/DL (74-106); Osmolality,Calculated 302.3 MOS/KG (273-304); Potassium 3.8 MMOL/L (3.5-5.1); Sodium 148 MMOL/L (136-145); Total Protein 4.9 G/DL (6.4-8.2)
[2021-04-19 18:22] LABS: INR 1.6; PT Patient Result 17.8 SECS (10.5-12.0); Partial Thromboplastin Time 33.8 SECS (23.8-32.1)
[2021-04-19 19:04] LABS: Hematocrit 26.5 VOL% (35.7-47.0)
[2021-04-19] MEDS ORDERED: PANTOPRAZOLE INJ 80 MG in SODIUM CHLORIDE 0.9% 100 ML IV ONE (19:30)
[2021-04-19] MEDS ORDERED: PANTOPRAZOLE INJ 200 MG in SODIUM CHLORIDE 0.9% 250 ML IV SCH (20:30)
[2021-04-19 22:01] LABS: Basophils % 0.2 % (0.0-0.8); Eosinophils # 0.2 10*3/uL (0.0-0.87); Hematocrit 24.1 VOL% (35.7-47.0); Hemoglobin 7.1 GM/DL (12.0-16.0); Immature Granulocytes % 1.6 %; Immature Granulocytes Absolute 0.16 #; Lymphocytes # 1.4 10*3/uL (1.4-4.0); Lymphocytes % 13.9 % (21.3-54.2); Mean Corpuscular HGB Conc 29.5 GM/DL (32-36); Mean Corpuscular Volume 92.3 FL (87-102); Mean Platelet Volume 10.2 FL (9.6-12.0); Monocytes % 5.6 % (1.7-12.7); Neutrophils % 76.7 % (38.7-73.9); Platelet Count 185 T/CUMM (130-400); Red Blood Count 2.61 MC/CUMM (3.8-5.5); Red Cell Distribution Width 16.5 % (9.3-17.3)
[2021-04-20] MEDS: DEXTROSE 5% 1,000 ML IV SCH ×2 (04:01→09:32)
[2021-04-20 04:58] LABS: Basophils % 0.3 % (0.0-0.8); Eosinophils # 0.2 10*3/uL (0.0-0.87); Eosinophils % 2.5 % (0.00-10.9); Hematocrit 38.9 VOL% (35.7-47.0); Hemoglobin 12.3 GM/DL (12.0-16.0); Immature Granulocytes % 2.5 %; Lymphocytes # 1.3 10*3/uL (1.4-4.0); Lymphocytes % 16.7 % (21.3-54.2); Mean Corpuscular HGB Conc 31.6 GM/DL (32-36); Mean Corpuscular Volume 90.3 FL (87-102); Mean Platelet Volume 10.2 FL (9.6-12.0); Monocytes % 4.4 % (1.7-12.7); Neutrophils % 73.6 % (38.7-73.9); Platelet Count 164 T/CUMM (130-400); Red Blood Count 4.31 MC/CUMM (3.8-5.5); Red Cell Distribution Width 15.7 % (9.3-17.3)
[2021-04-20 05:07] LABS: INR 1.3; PT Patient Result 14.6 SECS (10.5-12.0)
[2021-04-20 05:16] LABS: Calcium 7.8 MG/DL (8.5-10.1); Osmolality,Calculated 296.1 MOS/KG (273-304); Potassium 3.4 MMOL/L (3.5-5.1)
[2021-04-20] MEDS: POTASSIUM CHLORIDE RIDER 10 MEQ/100 ML PREMIX IV PRN ×3 (06:35→13:58)
[2021-04-20 07:17] LABS: Basophils % 0.2 % (0.0-0.8); Eosinophils # 0.3 10*3/uL (0.0-0.87); Hematocrit 36.2 VOL% (35.7-47.0); Hemoglobin 11.4 GM/DL (12.0-16.0); Immature Granulocytes % 1.5 %; Immature Granulocytes Absolute 0.13 #; Lymphocytes # 1.2 10*3/uL (1.4-4.0); Lymphocytes % 14.7 % (21.3-54.2); Mean Corpuscular HGB Conc 31.5 GM/DL (32-36); Mean Corpuscular Volume 89.8 FL (87-102); Mean Platelet Volume 10.5 FL (9.6-12.0); Monocytes % 5.1 % (1.7-12.7); NRBC # 0.02 10*3/uL; Neutrophils % 75.5 % (38.7-73.9); Platelet Count 153 T/CUMM (130-400); Red Blood Count 4.03 MC/CUMM (3.8-5.5); Red Cell Distribution Width 15.7 % (9.3-17.3); White Blood Count 8.4 T/CUMM (4-12)
[2021-04-20] MEDS: carvediloL 3.125 MG TABLET PO SCH ×2 (08:00→17:20)
[2021-04-20] MEDS: FLUDROCORTISONE 0.1 MG TABLET PO SCH (09:00)
[2021-04-20] MEDS: SERTRALINE 50 MG TABLET PO SCH (09:00)
[2021-04-20] MEDS: DEXTROSE 5% NACL 0.45% 1,000 ML IV SCH (09:14)
[2021-04-20 10:39] LABS: Basophils % 0.2 % (0.0-0.8); Eosinophils # 0.3 10*3/uL (0.0-0.87); Eosinophils % 3.3 % (0.00-10.9); Hematocrit 34.7 VOL% (35.7-47.0); Hemoglobin 11.1 GM/DL (12.0-16.0); Immature Granulocytes % 1.5 %; Immature Granulocytes Absolute 0.14 #; Lymphocytes # 1.4 10*3/uL (1.4-4.0); Lymphocytes % 15.1 % (21.3-54.2); Mean Corpuscular Volume 88.3 FL (87-102); Mean Platelet Volume 10.5 FL (9.6-12.0); Monocytes % 4.7 % (1.7-12.7); NRBC # 0.02 10*3/uL; Neutrophils % 75.2 % (38.7-73.9); Platelet Count 160 T/CUMM (130-400); Red Blood Count 3.93 MC/CUMM (3.8-5.5); Red Cell Distribution Width 15.9 % (9.3-17.3); White Blood Count 9.1 T/CUMM (4-12)
[2021-04-20] MEDS: SODIUM CHLORIDE 0.9% 1,000 ML IV SCH ×3 (10:57→17:02)
[2021-04-20] MEDS ORDERED: LIDOCAINE 2% 5 ML VIAL ONE (12:15)
[2021-04-20] MEDS ORDERED: ETOMIDATE 20 MG/10 ML VIAL IV ONE (12:15)
[2021-04-20] MEDS ORDERED: propofoL 200 MG/20 ML VIAL IV ONE (12:15)
[2021-04-20 12:45] VITALS: BP 115/86
[2021-04-20] MEDS: MAGNESIUM SULF RIDER 2 GM/50 ML PREMIX IV PRN (13:03)
[2021-04-20 14:05] LABS: Basophils % 0.3 % (0.0-0.8); Eosinophils # 0.3 10*3/uL (0.0-0.87); Eosinophils % 3.2 % (0.00-10.9); Hematocrit 34.1 VOL% (35.7-47.0); Hemoglobin 10.9 GM/DL (12.0-16.0); Immature Granulocytes % 1.8 %; Immature Granulocytes Absolute 0.16 #; Lymphocytes # 1.2 10*3/uL (1.4-4.0); Lymphocytes % 12.8 % (21.3-54.2); Mean Corpuscular Volume 89.7 FL (87-102); Mean Platelet Volume 10.8 FL (9.6-12.0); Monocytes % 4.8 % (1.7-12.7); NRBC # 0.02 10*3/uL; Neutrophils % 77.1 % (38.7-73.9); Platelet Count 155 T/CUMM (130-400); Red Cell Distribution Width 16.3 % (9.3-17.3)
[2021-04-20 17:16] LABS: Bilirubin,Urine Negative (Negative); Blood, Urine Negative (Negative); Glucose,Urine (UA) Negative (Negative); Hyaline Casts,Urine 8 /LPF (0-3); Ketones,Urine Negative (Negative); Mucus,Urine Occasional /LPF (Occasional); Nitrite,Urine Negative (Negative); Protein,Urine Negative; Squamous Epithelial Cell,Urine Occasional /HPF (0-10); Urine Appearance CLEAR (Clear); Urine Color Yellow (Yellow); Urine Specific Gravity 1.013 (1.001-1.035); Urine Urobilinogen < 2.0 EU/DL (0.2-1.0)
[2021-04-20] MEDS: PANTOPRAZOLE 40 MG VIAL IV SCH (21:22)
[2021-04-21 05:23] LABS: Calcium 7.9 MG/DL (8.5-10.1); Osmolality,Calculated 282.1 MOS/KG (273-304); Potassium 3.4 MMOL/L (3.5-5.1)
[2021-04-21] MEDS: POTASSIUM CHLORIDE RIDER 10 MEQ/100 ML PREMIX IV PRN ×3 (05:36→12:18)
[2021-04-21] MEDS: DEXTROSE 5% NACL 0.45% 1,000 ML IV SCH (05:37)
[2021-04-21] MEDS ORDERED: CLINDAMYCIN INJ 900 MG/50 ML PREMIX IV ONE (06:00)
[2021-04-21 07:38] LABS: Basophils % 0.3 % (0.0-0.8); Eosinophils # 0.4 10*3/uL (0.0-0.87); Hematocrit 35.9 VOL% (35.7-47.0); Hemoglobin 11.7 GM/DL (12.0-16.0); Immature Granulocytes % 1.3 %; Immature Granulocytes Absolute 0.15 #; Lymphocytes # 1.1 10*3/uL (1.4-4.0); Lymphocytes % 9.3 % (21.3-54.2); Mean Corpuscular HGB Conc 32.6 GM/DL (32-36); Mean Corpuscular Volume 88.4 FL (87-102); Monocytes % 4.8 % (1.7-12.7); Neutrophils % 81.3 % (38.7-73.9); Platelet Count 160 T/CUMM (130-400); Red Blood Count 4.06 MC/CUMM (3.8-5.5); Red Cell Distribution Width 16.6 % (9.3-17.3); White Blood Count 11.6 T/CUMM (4-12)
[2021-04-21] MEDS: SKIN HEALING OINT (AQUAPHOR) 50 GM TUBE TOP SCH (11:30)
[2021-04-21] MEDS: PANTOPRAZOLE 40 MG VIAL IV SCH ×2 (12:15→20:14)
[2021-04-21] MEDS ORDERED: METHYLENE BLUE 10 ML VIAL IV ONE (14:07)
[2021-04-21] MEDS ORDERED: LIDOCAINE 2% 5 ML VIAL ONE (14:10)
[2021-04-21] MEDS ORDERED: ROCURONIUM 50 MG/5 ML VIAL IV ONE (14:10)
[2021-04-21] MEDS ORDERED: ETOMIDATE 40 MG/20 ML VIAL IV ONE (14:10)
[2021-04-21] MEDS ORDERED: SUCCINYLCHOLINE 200 MG/10 ML VIAL ONE (14:10)
[2021-04-21] MEDS ORDERED: fentaNYL 100 MCG/2 ML VIAL ONE (14:10)
[2021-04-21] MEDS ORDERED: SEVOFLURANE 1 UNIT/15 MINUTE INH ONE (14:11)
[2021-04-21] MEDS ORDERED: ALBUMIN 5% 12.5 GM/250 ML VIAL IV ONE (14:57)
[2021-04-21] MEDS ORDERED: PHENYLEPHRINE 10 MG/1 ML VIAL IV ONE (15:20)
[2021-04-21] MEDS ORDERED: SODIUM CHLORIDE 0.9% 100 ML IV ONE (15:20)
[2021-04-21] MEDS ORDERED: TISSUE ADHESIVE 1 EACH APPLICATOR TOP ONE (15:29)
[2021-04-21] MEDS ORDERED: NEOSTIGMINE 10 MG/10 ML VIAL ONE (15:32)
[2021-04-21] MEDS ORDERED: GLYCOPYRROLATE 0.4 MG/2 ML VIAL ONE (15:32)
[2021-04-21] MEDS: FLUDROCORTISONE 0.1 MG TABLET PO SCH (16:33)
[2021-04-21] MEDS: carvediloL 3.125 MG TABLET PO SCH ×2 (16:33→17:30)
[2021-04-21] MEDS: SERTRALINE 50 MG TABLET PO SCH (16:33)
[2021-04-21 17:39] LABS: ABG Base Excess -6.6 MMOL/L (-2.5-2.5); ABG Oxygen Saturation 98.3 % (95-100); ABG PCO2 55.7 MM HG (35-48); ABG TCO2 20.3 MMOL/L (23-27); Allen Test Positive; Pt O2 Delivery Device Ventilator
[2021-04-21 17:40] LABS: ABG PH 7.205 (7.35-7.45)
[2021-04-21] MEDS: SODIUM CHLORIDE 0.9% 1,000 ML IV SCH (18:54)
[2021-04-21] MEDS ORDERED: PHENYLEPHRINE DRIP 40 MG/250 ML PREMIX IV ONE (20:33)
[2021-04-21] MEDS ORDERED: MIDAZOLAM 100 MG in SODIUM CHLORIDE 0.9% 80 ML IV PRN (20:38)
[2021-04-21] MEDS ORDERED: LACTATED RINGERS 500 ML IV ONE (20:38)
[2021-04-21] MEDS: PHENYLEPHRINE DRIP 40 MG/250 ML PREMIX IV PRN (20:47)
[2021-04-22] MEDS: DEXTROSE 5% NACL 0.45% 1,000 ML IV SCH ×3 (02:17→22:03)
[2021-04-22 03:45] LABS: ABG Base Excess -0.5 MMOL/L (-2.5-2.5); ABG HCO3 22.1 MMOL/L (20-26); ABG Oxygen Saturation 98.4 % (95-100); ABG PCO2 29.3 MM HG (35-48); ABG PH 7.496 (7.35-7.45); ABG PO2 137.8 MM HG (80-95); Allen Test Positive; Pt O2 Delivery Device Ventilator
[2021-04-22 03:59] LABS: Basophils % 0.2 % (0.0-0.8); Eosinophils # 0.3 10*3/uL (0.0-0.87); Eosinophils % 3.3 % (0.00-10.9); Hematocrit 29.7 VOL% (35.7-47.0); Hemoglobin 9.7 GM/DL (12.0-16.0); Lymphocytes # 1.8 10*3/uL (1.4-4.0); Lymphocytes % 17.4 % (21.3-54.2); Mean Corpuscular HGB Conc 32.7 GM/DL (32-36); Mean Corpuscular Volume 89.5 FL (87-102); Mean Platelet Volume 10.9 FL (9.6-12.0); Monocytes % 6.2 % (1.7-12.7); Neutrophils % 71.9 % (38.7-73.9); Platelet Count 140 T/CUMM (130-400); Red Blood Count 3.32 MC/CUMM (3.8-5.5); Red Cell Distribution Width 16.7 % (9.3-17.3); White Blood Count 10.2 T/CUMM (4-12)
[2021-04-22 04:14] LABS: Osmolality,Calculated 279.1 MOS/KG (273-304); Potassium 2.8 MMOL/L (3.5-5.1)
[2021-04-22] MEDS: POTASSIUM CHLORIDE RIDER 10 MEQ/100 ML PREMIX IV PRN ×5 (04:30→14:00)
[2021-04-22] MEDS: carvediloL 3.125 MG TABLET PO SCH ×2 (08:57→17:48)
[2021-04-22] MEDS: FLUDROCORTISONE 0.1 MG TABLET PO SCH (09:50)
[2021-04-22] MEDS: SERTRALINE 50 MG TABLET PO SCH (09:50)
[2021-04-22] MEDS: PANTOPRAZOLE 40 MG VIAL IV SCH ×2 (09:52→21:59)
[2021-04-22] MEDS: SKIN HEALING OINT (AQUAPHOR) 50 GM TUBE TOP SCH (09:52)
[2021-04-22] MEDS: MAGNESIUM SULF RIDER 2 GM/50 ML PREMIX IV PRN (16:13)
[2021-04-22] MEDS: SODIUM CHLORIDE 0.9% 1,000 ML IV SCH (17:03)
[2021-04-23 04:04] LABS: Basophils % 0.1 % (0.0-0.8); Eosinophils # 0.4 10*3/uL (0.0-0.87); Hematocrit 32.1 VOL% (35.7-47.0); Hemoglobin 10.1 GM/DL (12.0-16.0); Immature Granulocytes % 1.1 %; Immature Granulocytes Absolute 0.13 #; Lymphocytes # 1.3 10*3/uL (1.4-4.0); Lymphocytes % 11.1 % (21.3-54.2); Mean Corpuscular HGB Conc 31.5 GM/DL (32-36); Mean Corpuscular Volume 89.4 FL (87-102); Mean Platelet Volume 11.3 FL (9.6-12.0); Monocytes % 6.5 % (1.7-12.7); Neutrophils % 78.2 % (38.7-73.9); Platelet Count 163 T/CUMM (130-400); Red Blood Count 3.59 MC/CUMM (3.8-5.5); Red Cell Distribution Width 17.2 % (9.3-17.3); White Blood Count 11.9 T/CUMM (4-12)
[2021-04-23 04:43] LABS: Calcium 7.3 MG/DL (8.5-10.1); Osmolality,Calculated 274.5 MOS/KG (273-304); Potassium 3.2 MMOL/L (3.5-5.1)
[2021-04-23] MEDS: carvediloL 3.125 MG TABLET PO SCH ×2 (08:33→18:12)
[2021-04-23] MEDS: SKIN HEALING OINT (AQUAPHOR) 50 GM TUBE TOP SCH (08:33)
[2021-04-23] MEDS: SERTRALINE 50 MG TABLET PO SCH (08:34)
[2021-04-23] MEDS: FLUDROCORTISONE 0.1 MG TABLET PO SCH (08:34)
[2021-04-23] MEDS: PANTOPRAZOLE 40 MG VIAL IV SCH ×2 (08:34→21:00)
[2021-04-23] MEDS: POTASSIUM CHLORIDE RIDER 10 MEQ/100 ML PREMIX IV PRN ×4 (08:57→12:29)
[2021-04-23 10:06] LABS: ABG Base Excess -2.8 MMOL/L (-2.5-2.5); ABG HCO3 22.1 MMOL/L (20-26); ABG Oxygen Saturation 99.1 % (95-100); ABG PCO2 35.9 MM HG (35-48); ABG TCO2 19.7 MMOL/L (23-27); Pt O2 Delivery Device Ventilator
[2021-04-23] MEDS: ALBUMIN 5% 25 GM/500 ML VIAL IV ONE ×2 (10:07→10:19)
[2021-04-23] MEDS ORDERED: ALBUMIN 5% 12.5 GM/250 ML VIAL IV ONE (10:30)
[2021-04-23] MEDS: DEXTROSE 5% NACL 0.45% 1,000 ML IV SCH ×3 (12:58→21:54)
[2021-04-23] MEDS ORDERED: LORazepam 2 MG/1 ML VIAL ONE (17:59)
[2021-04-23] MEDS: LORazepam 2 MG/1 ML VIAL IV PRN (18:05)
[2021-04-23] MEDS: SODIUM CHLORIDE 0.9% 1,000 ML IV SCH (18:12)
[2021-04-24] MEDS ORDERED: LORazepam 2 MG/1 ML VIAL ONE ×3 (00:19→20:24)
[2021-04-24] MEDS: LORazepam 2 MG/1 ML VIAL IV PRN ×3 (00:20→20:36)
[2021-04-24] MEDS: DEXTROSE 5% NACL 0.45% 1,000 ML IV SCH (04:35)
[2021-04-24] MEDS: SKIN HEALING OINT (AQUAPHOR) 50 GM TUBE TOP SCH (08:47)
[2021-04-24] MEDS: SERTRALINE 50 MG TABLET PO SCH (08:47)
[2021-04-24] MEDS: PANTOPRAZOLE 40 MG VIAL IV SCH ×2 (08:47→21:29)
[2021-04-24] MEDS: FLUDROCORTISONE 0.1 MG TABLET PO SCH (08:47)
[2021-04-24] MEDS: carvediloL 3.125 MG TABLET PO SCH ×2 (08:47→17:52)
[2021-04-24] MEDS: QUEtiapine 25 MG TABLET PO SCH (10:44)
[2021-04-24] MEDS: APIXABAN 2.5 MG TABLET PO SCH ×2 (10:44→21:29)
[2021-04-24 12:03] LABS: Calcium 7.5 MG/DL (8.5-10.1); Potassium 4.1 MMOL/L (3.5-5.1)
[2021-04-24] MEDS ORDERED: FUROSEMIDE 40 MG/4 ML VIAL IV ONE ×2 (12:26→21:22)
[2021-04-24] MEDS ORDERED: ALBUMIN 5% 12.5 GM/250 ML VIAL IV ONE (12:26)
[2021-04-24] MEDS: PHENYLEPHRINE DRIP 40 MG/250 ML PREMIX IV PRN (12:37)
[2021-04-24] MEDS: POTASSIUM CHLORIDE 20 MEQ PACK PER TUBE SCH (12:58)
[2021-04-24] MEDS: MEROPENEM 500 MG in SODIUM CHLORIDE 0.9% 100 ML IV SCH (18:15)
[2021-04-24] MEDS ORDERED: ALBUTEROL/IPRATROPIUM 3 ML NEB RESP TX ONE (21:01)
[2021-04-24 21:28] LABS: ABG Base Excess -0.5 MMOL/L (-2.5-2.5); ABG HCO3 23.9 MMOL/L (20-26); ABG Oxygen Saturation 89.9 % (95-100); ABG PCO2 52.8 MM HG (35-48); ABG PH 7.307 (7.35-7.45); ABG PO2 61.6 MM HG (80-95); ABG TCO2 24.3 MMOL/L (23-27)
[2021-04-24 21:55] LABS: Basophils % 0.1 % (0.0-0.8); Eosinophils # 0.2 10*3/uL (0.0-0.87); Hematocrit 30.8 VOL% (35.7-47.0); Hemoglobin 9.5 GM/DL (12.0-16.0); Immature Granulocytes % 0.7 %; Immature Granulocytes Absolute 0.11 #; Lymphocytes # 0.9 10*3/uL (1.4-4.0); Lymphocytes % 5.4 % (21.3-54.2); Mean Corpuscular HGB Conc 30.8 GM/DL (32-36); Mean Corpuscular Volume 91.4 FL (87-102); Mean Platelet Volume 11.6 FL (9.6-12.0); Monocytes % 4.4 % (1.7-12.7); Neutrophils % 88.4 % (38.7-73.9); Platelet Count 116 T/CUMM (130-400); Red Blood Count 3.37 MC/CUMM (3.8-5.5); Red Cell Distribution Width 17.2 % (9.3-17.3); White Blood Count 15.7 T/CUMM (4-12)
[2021-04-24 22:46] LABS: ABG Base Excess -0.2 MMOL/L (-2.5-2.5); ABG HCO3 24.3 MMOL/L (20-26); ABG Oxygen Saturation 98.2 % (95-100); ABG PCO2 57.1 MM HG (35-48); ABG PH 7.289 (7.35-7.45); ABG TCO2 25.2 MMOL/L (23-27)
[2021-04-25] MEDS: ALBUTEROL/IPRATROPIUM 3 ML NEB RESP TX SCH ×4 (00:17→19:16)
[2021-04-25] MEDS: MEROPENEM 500 MG in SODIUM CHLORIDE 0.9% 100 ML IV SCH ×4 (00:24→17:43)
[2021-04-25] MEDS: PHENYLEPHRINE DRIP 40 MG/250 ML PREMIX IV PRN ×4 (03:31→19:11)
[2021-04-25] MEDS: VANCOMYCIN INJ 1,000 MG in SODIUM CHLORIDE 0.9% 250 ML IV SCH (03:31)
[2021-04-25 04:26] LABS: ABG Base Excess 2.5 MMOL/L (-2.5-2.5); ABG HCO3 26.6 MMOL/L (20-26); ABG Oxygen Saturation 97.6 % (95-100); ABG PCO2 46.2 MM HG (35-48); ABG PO2 90.8 MM HG (80-95); ABG TCO2 25.3 MMOL/L (23-27)
[2021-04-25 06:35] LABS: Basophils % 0.2 % (0.0-0.8); Eosinophils # 0.2 10*3/uL (0.0-0.87); Hemoglobin 10.1 GM/DL (12.0-16.0); Immature Granulocytes % 0.9 %; Immature Granulocytes Absolute 0.14 #; Lymphocytes # 0.7 10*3/uL (1.4-4.0); Lymphocytes % 4.8 % (21.3-54.2); Mean Corpuscular HGB Conc 31.6 GM/DL (32-36); Mean Corpuscular Volume 90.4 FL (87-102); Mean Platelet Volume 10.7 FL (9.6-12.0); Monocytes % 3.5 % (1.7-12.7); Neutrophils % 89.6 % (38.7-73.9); Platelet Count 120 T/CUMM (130-400); Red Blood Count 3.54 MC/CUMM (3.8-5.5); Red Cell Distribution Width 17.2 % (9.3-17.3); White Blood Count 15.3 T/CUMM (4-12)
[2021-04-25 07:05] LABS: Calcium 7.7 MG/DL (8.5-10.1); Osmolality,Calculated 278.3 MOS/KG (273-304)
[2021-04-25 07:06] LABS: Band Neutrophils 7 % (0-10); Hypochromasia 2+; Lymphocytes 3 % (20-55); Metamyelocytes 1 %; Platelet Estimate Adequate; Polychromasia Slight; Segmented Neutrophils 82 % (50-85); Total Cells Counted 100
[2021-04-25] MEDS: QUEtiapine 25 MG TABLET PO SCH (08:37)
[2021-04-25] MEDS: APIXABAN 2.5 MG TABLET PO SCH ×2 (08:38→21:22)
[2021-04-25] MEDS: FLUDROCORTISONE 0.1 MG TABLET PO SCH (08:38)
[2021-04-25] MEDS: POTASSIUM CHLORIDE 20 MEQ TABLET PO PRN ×4 (08:38→16:21)
[2021-04-25] MEDS: SERTRALINE 50 MG TABLET PO SCH (08:38)
[2021-04-25] MEDS: SKIN HEALING OINT (AQUAPHOR) 50 GM TUBE TOP SCH (08:39)
[2021-04-25] MEDS: carvediloL 3.125 MG TABLET PO SCH ×3 (08:39→17:32)
[2021-04-25] MEDS: MAGNESIUM SULF RIDER 2 GM/50 ML PREMIX IV PRN (09:04)
[2021-04-25] MEDS: POTASSIUM CHLORIDE 20 MEQ PACK PER TUBE SCH (09:04)
[2021-04-25] MEDS: FUROSEMIDE 40 MG/4 ML VIAL IV SCH ×2 (09:10→16:31)
[2021-04-25] MEDS: PANTOPRAZOLE 40 MG VIAL IV SCH ×2 (09:14→21:18)
[2021-04-25 12:43] LABS: Albumin 1.9 G/DL (3.4-5.0); Bilirubin,Direct 0.42 MG/DL (0.0-0.20); Bilirubin,Indirect 0.5 MG/DL (0.0-1.0); Bilirubin,Total 0.9 MG/DL (0.20-1.00); Total Protein 5.4 G/DL (6.4-8.2)
[2021-04-25] MEDS: ALBUMIN 25% 25 GM/100 ML VIAL IV SCH (14:42)
[2021-04-25] MEDS: NOREPINEPHRINE 8 MG in SODIUM CHLORIDE 0.9% 242 ML IV PRN (17:31)
[2021-04-25] MEDS: INSULIN REGULAR 100 UNIT/ML SUBCUT SCH (17:43)
[2021-04-26] MEDS: MEROPENEM 500 MG in SODIUM CHLORIDE 0.9% 100 ML IV SCH ×2 (00:16→05:41)
[2021-04-26] MEDS: ALBUTEROL/IPRATROPIUM 3 ML NEB RESP TX SCH ×3 (00:50→13:40)
[2021-04-26] MEDS ORDERED: FUROSEMIDE 40 MG/4 ML VIAL IV ONE (01:00)
[2021-04-26] MEDS: INSULIN REGULAR 100 UNIT/ML SUBCUT SCH ×3 (01:41→11:46)
[2021-04-26] MEDS: VANCOMYCIN INJ 1,000 MG in SODIUM CHLORIDE 0.9% 250 ML IV SCH (01:44)
[2021-04-26] MEDS: PHENYLEPHRINE DRIP 40 MG/250 ML PREMIX IV PRN ×6 (02:23→14:39)
[2021-04-26] MEDS: ALBUMIN 25% 25 GM/100 ML VIAL IV SCH ×2 (03:33→14:13)
[2021-04-26 05:32] LABS: Basophils % 0.1 % (0.0-0.8); Hematocrit 32.7 VOL% (35.7-47.0); Immature Granulocytes % 1.1 %; Immature Granulocytes Absolute 0.22 #; Lymphocytes # 1.1 10*3/uL (1.4-4.0); Lymphocytes % 5.1 % (21.3-54.2); Mean Corpuscular HGB Conc 28.7 GM/DL (32-36); Mean Corpuscular Volume 99.7 FL (87-102); Monocytes % 3.6 % (1.7-12.7); Neutrophils % 90.1 % (38.7-73.9); Platelet Count 164 T/CUMM (130-400); Red Blood Count 3.28 MC/CUMM (3.8-5.5); Red Cell Distribution Width 17.3 % (9.3-17.3); White Blood Count 20.6 T/CUMM (4-12)
[2021-04-26 05:57] LABS: Albumin 2.9 G/DL (3.4-5.0); Bilirubin,Total 0.7 MG/DL (0.20-1.00); Calcium 8.2 MG/DL (8.5-10.1); Osmolality,Calculated 275.5 MOS/KG (273-304); Potassium 5.6 MMOL/L (3.5-5.1); Total Protein 6.1 G/DL (6.4-8.2)
[2021-04-26 06:04] LABS: Hemoglobin 9.4 GM/DL (12.0-16.0)
[2021-04-26] MEDS ORDERED: DEXTROSE 50% 25 GM/50 ML VIAL IV PRN (06:07)
[2021-04-26] MEDS ORDERED: GLUCAGON 1 MG VIAL IM PRN (06:07)
[2021-04-26 06:39] LABS: Hypochromasia Slight; Lymphocytes 2 % (20-55); Ovalocytes Few; Polychromasia Slight; Segmented Neutrophils 98 % (50-85); Total Cells Counted 100
[2021-04-26 06:40] LABS: Platelet Estimate Adequate
[2021-04-26] MEDS: FLUDROCORTISONE 0.1 MG TABLET PO SCH (09:15)
[2021-04-26] MEDS: carvediloL 3.125 MG TABLET PO SCH (09:16)
[2021-04-26] MEDS: SERTRALINE 50 MG TABLET PO SCH (09:16)
[2021-04-26] MEDS: APIXABAN 2.5 MG TABLET PO SCH (09:16)
[2021-04-26] MEDS: POTASSIUM CHLORIDE 20 MEQ PACK PER TUBE SCH (09:17)
[2021-04-26] MEDS: SKIN HEALING OINT (AQUAPHOR) 50 GM TUBE TOP SCH (09:17)
[2021-04-26] MEDS: QUEtiapine 25 MG TABLET PO SCH (09:18)
[2021-04-26] MEDS: FUROSEMIDE 40 MG/4 ML VIAL IV SCH (09:30)
[2021-04-26] MEDS: PANTOPRAZOLE 40 MG VIAL IV SCH (09:33)
[2021-04-26] MEDS: NOREPINEPHRINE 8 MG in SODIUM CHLORIDE 0.9% 242 ML IV PRN (13:00)
[2021-04-26] MEDS ORDERED: MEROPENEM 500 MG in SODIUM CHLORIDE 0.9% 100 ML IV SCH (14:00)
[2021-04-26] MEDS ORDERED: MORPHINE 2 MG/1 ML SYRINGE ONE (15:03)
[2021-04-29] MEDS: LORazepam 2 MG/1 ML VIAL IV PRN (15:09)
[2021-04-29] MEDS ORDERED: MORPHINE 2 MG/1 ML SYRINGE IV ONE (19:19)
== END 2021-04-26 15:23 | disposition expired | DRG 871 ==
LOC: EDUNIT# → EDBD → N.ED 14:42 → SUATTDRO 17:45 → N.EDINP 17:45 → N.CC 19:17 → N.5E 04-16 14:48 → N.ICU 04-19 17:27
PROVIDERS: ADMIT Internal Medicine; ATTEND Internal Medicine